=== PATIENT | female | born 1965 | race Caucasian/White ===

== ENCOUNTER → 2020-12-25 | Outpatient (CLI) | payer OTHER | LOC: HEART 5 09:25 | DX: J44.9 Chronic obstructive pulmonary disease, unspecified (principal); D64.9 Anemia, unspecified; F41.9 Anxiety disorder, unspecified; M19.90 Unspecified osteoarthritis, unspecified site; R91.8 Other nonspecific abnormal finding of lung field; R94.2 Abnormal results of pulmonary function studies | CPT/HCPCS: 71046; 94010 ==